=== PATIENT | female | born 1990 | race African-American/Black ===

== ENCOUNTER 2017-02-05 01:49 | Emergency (ER) | payer OTHER ==
[2017-02-05] MEDS ORDERED: LOMOTIL PO ONE (02:40)
[2017-02-05] MEDS ORDERED: ZOFRAN ODT PO ONE (02:40)
[2017-02-05] MEDS ORDERED: AMOXIL PO ONE (02:41)
--- NOTE | 2017-02-05 02:42 | PROVIDER DOCUMENTATION ---
HPI-Abdominal Pain/GI Problem - General Source: patient - History of Present Illness-ABD Nature of Presenting Problems: 26 y/o AAF presents to the ED with N/V/D with cramps for 1 day. Has a tooth ache aggravated by the vomiting. Abdominal Pain Onset Location: reports: generalized abdomen Pain Radiation: reports: no radiation Quality of Pain: reports: cramping Severity in ED: reports: mild, moderate Onset/Duration: reports: 1 hour ago Timing: reports: still present Exposure to sick contacts?: No Modifying Factors: improves with: nothing <Benito Lorenzo - Last Filed: 02/05/17 02:38> <Vitor Fernandez - Last Filed: 02/05/17 02:54> - General Chief Complaint: N/V/D Stated Complaint: N,V,D Time Seen by Provider: 02/05/17 02:17 Allergies/Adverse Reactions: Patient Allergies Allergy/AdvReac Type Severity Reaction Status Date / Time No Known Allergies Allergy Verified 02/05/17 02:02 Home Medications: Home Medication List Medication Instructions Recorded Confirmed Last Taken Type Amoxicillin [Amoxil] 500 mg PO TID #30 capsule 02/05/17 Unknown Rx Diphenoxylate/Atropine [Lomotil] 1 - 2 each PO Q6H PRN PRN #20 02/05/17 Unknown Rx tablet Ondansetron [Zofran Odt] 4 mg PO Q4-6H PRN PRN #12 02/05/17 Unknown Rx tab.rapdis Review of Systems - Adult - REVIEW OF SYSTEMS - ADULT Constitutional: denies: chills, fever Eyes: reports: no symptoms reported Ears, Nose, Mouth & Throat: reports: mouth/dental pain. denies: ear pain, loose teeth, throat pain Cardiovascular: reports: no symptoms reported Respiratory: denies: cough, shortness of breath, wheezing Gastrointestinal: reports: abdominal pain, diarrhea, nausea, vomiting Genitourinary: reports: no symptoms reported Musculoskeletal: reports: no symptoms reported Integumentary: reports: no symptoms reported Neurological: reports: no symptoms reported Psychiatric: reports: no symptoms reported Endocrine: reports: no symptoms reported Hematologic/Lymphatic: reports: no symptoms reported Allergic/Immunologic: reports: no symptoms reported All Other Systems: Reviewed and Negative <Benito Lorenzo - Last Filed: 02/05/17 02:38> Past History - Adult - PAST MEDICAL HISTORY-ADULT Review of Records: reports: Old Records Reviewed, Nursing Assessment Review, Medications Reviewed Major Childhood Illnesses: reports: denies history Genitourinary: reports: denies history Musculoskeletal: reports: denies history Neurological: reports: denies history Psychiatric: reports: anxiety Endocrine/Immune: reports: denies history Other Conditions: reports: denies history - PRIOR SURGERIES/PROCEDURES Surgical/Procedure History: reports: none - IMMUNIZATION STATUS Childhood Immunizations: See Nurse Assessment Flu Vaccine: See Nurse Assessment - FAMILY HISTORY Family History: reviewed, not pertinent - SOCIAL HISTORY Smoking: cigarettes, less than 1 pack/day Living Situation: family <Benito Lorenzo - Last Filed: 02/05/17 02:38> Physical Exam-General - PHYSICAL EXAM-ADULT Initial Vital Signs Reviewed: Yes - CONSTITUTIONAL General Appearance: appears well, alert, no apparent distress - EYES Eyes: PERRL/EOMI, pink conjunctivae - HEAD, EARS, NOSE, MOUTH & THROAT HENMT: moist mucous membranes, normal ENT inspection, other (Right lower molar) - NECK Neck: non-tender, full range of motion, supple, normal inspection - RESPIRATORY Respiratory: lungs clear, normal breath sounds, no pleuratic chest pain, no respiratory distress - CARDIOVASCULAR Cardiovascular: normal peripheral pulses, regular rate, rhythm, systolic murmur (2/6) - GASTROINTESTINAL (ABDOMEN) Abdominal Exam: normal bowel sounds, soft, tenderness (generlized wore LUQ) - MUSCULOSKELETAL Back Exam: normal inspection, no CVA tenderness, no vertebral tenderness Extremity: normal range of motion, non-tender, normal gait, normal inspection - SKIN Integumentary: normal color, normal turgor, warm/dry - NEUROLOGIC Neurologic: grossly normal, no motor/sensory deficits - PSYCHIATRIC Psych/Mental Status: normal mood/affect, normal thought content, normal thought process, oriented x 3 <Benito Lorenzo - Last Filed: 02/05/17 02:38> Departure <Benito Lorenzo - Last Filed: 02/05/17 02:38> - Departure Time of Disposition Order: 03:15 Certified Medical Emergency: Emergent <Vitor Fernandez - Last Filed: 02/05/17 02:54> - Departure DIAGNOSIS: Gastroenteritis, Tooth ache Disposition: HOME 01 Condition: Fair Additional Instructions: ONLY GATORADE, POWERADE TILL TONIGHT THEN IF BETTER SLOWLY ADVANCE TO CRACKERS, RICE, APPLESAUCE, BANANAS ETC CALL DENTIST FOR APPOINTMENT. TAKE 2 ALEVE TWICE A DAY FOR PAIN Prescriptions: Amoxicillin [Amoxil] 500 mg PO TID #30 capsule Diphenoxylate/Atropine [Lomotil] 1 - 2 each PO Q6H PRN PRN #20 tablet PRN Reason: Diarrhea Ondansetron [Zofran Odt] 4 mg PO Q4-6H PRN PRN #12 tab.rapdis PRN Reason: Nausea And Vomiting Referrals: Christopher Jensen MD [STAFF PHYSICIAN] - Forms: Return to School/Parent Work Attestation - Scribe Verification/Attestation Scribe:: Benito Lorenzo Acting as Scribe for:: Vitor Fernandez Scribe documention review:: This chart was documented by a scribe and accurately reflects the service the provider performed and the decisions made by the provider. <Benito Lorenzo - Last Filed: 02/05/17 02:38> Physician Attestation
[2017-02-05 03:02] LABS: URINE SOURCE CLEAN CATCH
[2017-02-05 03:14] LABS: BILIRUBIN URINE NEGATIVE (NEGATIVE); BLOOD URINE 1+ (NEGATIVE); CLARITY CLEAR (CLEAR); COLOR YELLOW; GLUCOSE URINE NEGATIVE (NEGATIVE); LEUKOCYTES URINE NEGATIVE (NEGATIVE); NITRITE URINE NEGATIVE (NEGATIVE); PROTEIN URINE NEGATIVE (NEGATIVE); UROBILINOGEN URINE NORMAL
[2017-02-05 03:19] LABS: URINE CULTURE PL NEEDED? YES; URINE EPITHELIAL CELLS <10 /HPF (<10); URINE RBC <10 /HPF (<10); URINE WBC <10 /HPF (<10)
[2017-02-05 03:41] VITALS: BP 100/63
== END 2017-02-05 03:41 | disposition home or self-care (01) ==
LOC: P.ED 01:49
DX: K52.9 Noninfective gastroenteritis and colitis, unspecified (principal); K08.89 Other specified disorders of teeth and supporting structures; R11.2 Nausea with vomiting, unspecified; R19.7 Diarrhea, unspecified; R10.84 Generalized abdominal pain; R01.1 Cardiac murmur, unspecified; R10.817 Generalized abdominal tenderness; R10.812 Left upper quadrant abdominal tenderness; F17.210 Nicotine dependence, cigarettes, uncomplicated
CPT/HCPCS: 81001; 87088